=== PATIENT | female | born 1945 ===

== ENCOUNTER → 2018-12-23 13:51 | Outpatient (CLI) | payer MEDICARE, OTHER, SELFPAY ==
--- NOTE | 2018-12-23 | DI.MRI.S_ITS ---
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 COMPARISON: None. FINDINGS: Image quality: Excellent. CSF spaces: Ventricles appear symmetric in size and shape. Basal cisterns are patent. No extra-axial fluid collections. Brain: No intracranial bleeds or mass effects. There is cerebral volume loss for age. There are periventricular and deep white matter chronic small vessel ischemic changes. Brainstem appears normal. Diffusion-weighted images show no acute ischemic insults. No chronic ischemic insults. Normal intravascular flow voids are present. Skull and face: Calvarial bone marrow is normal in signal. Orbits are normal. Sinuses: Mild maxillary sinus with thickening and small mucous retention cysts. Mastoids are clear. IMPRESSION: 1. No acute intracranial abnormalities. No findings to explain SIADH. 2. Cerebral volume loss and chronic microvascular ischemic changes. 3. Mild maxillary sinus disease. Dictated by: Daniel Wesley M.D. on 12/23/2018 at 14:43 Approved by: Daniel Wesley M.D. on 12/23/2018 at 17:38
== END ==
PROVIDERS: Family Provider Nurse Practitioner Family; PCP Nurse Practitioner Family; Visit Provider Nurse Practitioner Family
DX: E22.2 Syndrome of inappropriate secretion of antidiuretic hormone (principal); J32.0 Chronic maxillary sinusitis
CPT/HCPCS: 70551

== ENCOUNTER → 2022-06-12 07:08 | Outpatient (CLI) | payer MEDICARE, SELFPAY ==
[2022-06-12 21:40] LABS: COVID19 - ORCAS (NP or Nasal) Negative (Negative)
== END ==
PROVIDERS: Visit Provider Physician Assistant
DX: Z20.822 Contact with and (suspected) exposure to COVID-19 (principal)
CPT/HCPCS: C9803; U0003